=== PATIENT | female | born 1955 | race Caucasian/White ===

== ENCOUNTER 2024-04-07 12:59 | Emergency (ER) | payer MEDICARE ==
[~2024-04-07] VITALS: Ht 165.1 cm; Wt 97.5 kg
[2024-04-07] MEDS ORDERED: ACETAMINOPHEN 325 MG TAB PO ONE (13:05)
[2024-04-07] MEDS ORDERED: SODIUM CHLORIDE 0.9% 500 ML IV ONE (13:35)
[2024-04-07] MEDS ORDERED: ETOMIDATE 20 MG/10 ML VIAL IV ONE (14:20)
[2024-04-07] MEDS ORDERED: HYDROCODONE-AC1 EAC1 PO (16:51)
== END 2024-04-07 17:35 | disposition home or self-care (01) ==
LOC: ED 12:59
DX: S43.004A Unspecified dislocation of right shoulder joint, initial encounter (principal); W01.0XXA Fall on same level from slipping, tripping and stumbling without subsequent striking against object, initial encounter; Y93.89 Activity, other specified; Y92.89 Other specified places as the place of occurrence of the external cause; Y99.8 Other external cause status; E78.00 Pure hypercholesterolemia, unspecified; E11.9 Type 2 diabetes mellitus without complications; Z91.041 Radiographic dye allergy status

== ENCOUNTER 2024-06-18 19:47 | Emergency (ER) | payer MEDICARE ==
[~2024-06-18] VITALS: Ht 162.5 cm; Wt 98.9 kg
[~2024-06-18 19:47] MED LIST: HYDROCODONE-AC1 EAC1 PO
[2024-06-18] MEDS ORDERED: METFORMIN XR500 MG PO (20:04)
[2024-06-18] MEDS ORDERED: ATORVASTATIN CA20 M1 PO (20:05)
[2024-06-18] MEDS ORDERED: ACETAMINOPHEN 325 MG TAB PO ONE (20:20)
[2024-06-18] MEDS ORDERED: CYCLOBENZAPRINE5 M3 PO (22:15)
== END 2024-06-18 22:20 | disposition home or self-care (01) ==
LOC: ED 19:47
DX: M54.50 Low back pain, unspecified (principal); Z91.041 Radiographic dye allergy status; Z79.899 Other long term (current) drug therapy